=== PATIENT | female | born 1935 | race Caucasian/White ===

== ENCOUNTER 2019-11-03 15:48 | Observation (INO) | payer MEDICARE ==
[2019-11-03] MEDS ORDERED: Norco 10/325 MG Tablet PO PRN (16:42)
[2019-11-03] MEDS ORDERED: NORCO 5/325 MG PO PRN (16:42)
[2019-11-03] MEDS ORDERED: MEDICATION INTERVENTION PO SCH ×3 (17:00→17:30)
--- NOTE | 2019-11-03 17:08 | XRAY ---
Indication: Left leg pain and bruising following fall. 2-dimensional sonogram and color Doppler imaging of the major venous vessels of the left leg was performed. Comparison: None No thrombus seen in the examined deep venous vessels of the left leg including greater saphenous vein. Veins demonstrate normal compressibility. Venous waveforms are normal with and without augmentation. Impression: Left leg negative for DVT.
[2019-11-03] MEDS: Neurontin 100 MG PO SCH (21:03)
[2019-11-03] MEDS: PATIENT OWN MEDICATION TOP SCH (21:04)
[2019-11-03] MEDS: Pepcid 20 MG PO SCH (21:05)
[2019-11-03] MEDS ORDERED: [UNRECOGNIZED DRUG - OTHER] OP SCH (22:00)
[2019-11-03] MEDS ORDERED: MAGNESIUM OXIDE PO SCH (22:00)
[2019-11-03] MEDS ORDERED: MAG-OX 400 PO SCH (22:00)
[2019-11-03] MEDS ORDERED: DEXAMETHASONE OP SCH (22:00)
[2019-11-03] MEDS ORDERED: NON-FORMULARY ITEM (Cyclosporine [Restasis] 1 DROP) OP SCH (22:00)
[2019-11-04 04:07] LABS: BASOPHIL % 0.2 % (0.0-0.4); Basophil (Absolute #) 0.01 (0-0.4); Eosinophil % 3.2 % (0.00-5.0); Hematocrit 33.2 % (35-47); Hemoglobin 10.7 gm/dl (12.0-16.0); Lymphocyte (Absolute #) 1.37 (1.0-4.6); Mean Cell Volume 96.2 fl (78-100); Mean Corpuscular Hgb Concent. 32.2 g/dl (32-36); Monocyte (Absolute #) 0.85 (0.0-1.3); Monocytes % 13.6 % (0.0-12.0); Platelet Count 192 K/mm3 (150-450); Red Blood Count 3.45 M/mm3 (4.1-5.4); Red Cell Distribution Width 14.5 % (11.5-14.0); White Blood Count 6.2 K/mm3 (4.0-10.5)
[2019-11-04 04:37] LABS: ALBUMIN 3.4 g/dL (3.5-5.0); ANION GAP 9.4 MEQ/L (5-15); BILIRUBIN,TOTAL 0.7 mg/dL (0.2-1.3); Calcium 9.4 mg/dL (8.4-10.2); Creatinine 1 0.99 mg/dL (0.52-1.04); Potassium 4.3 mmol/L (3.5-5.1); TSH, 3RD Generation 3.34 mIU/L (0.47-4.68); Total Protein 6.4 g/dL (6.3-8.2)
[2019-11-04 07:17] VITALS: O2SAT 95
[2019-11-04] MEDS: Pepcid 20 MG PO SCH (09:07)
[2019-11-04] MEDS: PATIENT OWN MEDICATION TOP SCH (09:09)
[2019-11-04] MEDS ORDERED: SYNTHROID 25 MCG PO SCH (10:00)
[2019-11-04] MEDS ORDERED: NORVASC 5 MG PO SCH (10:00)
[2019-11-04] MEDS ORDERED: Zocor 10MG PO SCH (10:00)
[2019-11-04] MEDS ORDERED: Protonix 40MG Tablet PO SCH (10:00)
[2019-11-04] MEDS ORDERED: DULOXETINE HCL 10 MG PO SCH (10:00)
[2019-11-04] MEDS ORDERED: NON-FORMULARY ITEM (Cholecalciferol (Vitamin D3) [Vitamin D3] 1 CAP) PO SCH (10:00)
[2019-11-04] MEDS: Neurontin 100 MG PO SCH (11:41)
[2019-11-04 11:53] VITALS: BP 140/74; PULSE 76
--- NOTE | 2019-11-04 14:43 | PCM.SSS ---
History of Present Illness - Chief Complaint Chief Complaint: HEMATOMA LEFT LE History of Present Illness: is a 84 year old female who lives alone and had fallen on a 2 step ladder that collapsed when she was trying to get something off of the top of the fridg.13 days ago. Her [facility] [place] where she had an xray that was negative for fracture of left injured leg (see full ER report). Patient came in for follow up at the clinic today because the pain in her left lower leg is getting worse "10/10" level of pain.She was afraid she had a clot. - Review of Systems Constitutional: No Fever, No Chills Eyes: No Symptoms Respiratory: No Symptoms Cardiac: No Symptoms Abdominal/Gastrointestinal: No Symptoms Genitourinary Symptoms: No Symptoms Musculoskeletal: Fall (see HPI) Skin: Other (left low leg purple after fall) Neurological: No Dizziness, No Focal Weakness, No Sensory Changes Psychological: No Symptoms Endocrine: No Symptoms Hematologic/Lymphatic: Easy Bleeding (is on Plavix and a baby aspirin) Medications & Allergies Home Medications: Home Medication List Aspirin 81 gm Chew [Baby Aspirin 81 mg Chew] 81 mg PO DAILY 05/07/13 [ History Confirmed 11/03/19] Clopidogrel Bisulfate 75 mg [PLAVIX 75 MG Tablet] 75 mg PO DAILY 05/07/13 [History Confirmed 11/03/19] Cholecalciferol (Vitamin D3) [Vitamin D3] 1 cap PO DAILY 11/03/19 [History Confirmed 11/03/19] Cyclosporine [Restasis] 1 drop BID 11/03/19 [History Confirmed 11/03/19] Furosemide 20 mg [Lasix 20 mg] 20 mg PO DAILY 11/03/19 [History Confirmed 11/03/19] Gabapentin 100 mg PO HS 11/03/19 [History Confirmed 11/03/19] Hydrocortisone 1 gm EXT QID PRN 11/03/19 [History Confirmed 11/03/19] Levothyroxine Sodium 25 mcg PO DAILY 11/03/19 [History Confirmed 11/03/19] Magnesium Oxide [Magnesium] 1 tab PO HS 11/03/19 [History Confirmed 11/03/19] Omeprazole 20 mg PO DAILY 11/03/19 [History Confirmed 11/03/19] Potassium Chloride 10 Meq Tab* [Klor Con 10 MEQ] 10 meq PO BID 11/03/19 [ History Confirmed 11/03/19] Simvastatin 5 mg PO DAILY 11/03/19 [History Confirmed 11/03/19] Amlodipine Besylate 5 mg [Norvasc 5 mg] 5 mg PO DAILY 11/04/19 [History Confirmed 11/04/19] Hydrocodone/APAP 5-325 Tab^^^ [[place] 5-325 Tablet^^^] 1 tab PO Q4HPRN PRN #30 tablet MDD 6 11/04/19 [Rx] Allergies/Adverse Reactions: Allergies Allergy/AdvReac Type Severity Reaction Status Date / Time No Known Drug Allergies Allergy Unverified 05/07/13 01:48 - Past Medical History Past Medical History: Yes Neurological History: TIA ENT History: Cataracts Cardiac History: Hypertension Respiratory History: No Pertinent History Endocrine Medical History: No Pertinent History Musculoskelatal History: Arthritis GI Medical History: Ulcer History: Renal Disease Pyscho-Social History: No Pertinent History Reproductive Disorders: No Pertinent History Comment: SKIN CANCER - Female History Are you now?: No - Past Surgical History Past Surgical History: Yes Neuro Surgical History: No Pertinent History Cardiac History: No Pertinent History Respiratory Surgery: No Pertinent History GI Surgical History: Other Genitourinary Surgical Hx: No Pertinent History Musculskeletal Surgical Hx: Orthopedic Surgery Female Surgical History: No Pertinent History Other Surgical History: PERFORATED ULCER SHOULDER SURGERY - Social History Smoking Status: Never smoker Exposure to second hand smoke: No Alcohol: None Drug Use: none - Physical Exam Vital Signs: Vital Signs - 24 hr Temp Pulse Resp BP BP Pulse Ox 11/04/19 11:53 98.3 F 76 18 140/74 95 11/04/19 07:15 98.2 F 57 L 18 163/74 95 11/04/19 03:03 98.3 F 75 16 146/75 146/75 94 L 11/03/19 23:47 98.2 F 75 18 142/62 139/70 95 11/03/19 19:37 97.8 F 72 17 139/70 97 11/03/19 16:18 97.9 F 78 20 147/75 94 L 11/03/19 16:14 97.9 F 78 20 174/75 94 L General Appearance: mild distress (improved after Hydrocodone given on admission -no longer having pain at rest) Neurologic Exam: alert, oriented x 3, cooperative, short story writer II-XII nml as tested, normal mood/affect, nml cerebellar function, other (gait is slow due to pain in left lower anterior leg which is worse with walking) Neck Exam: normal inspection Respiratory Exam: normal breath sounds (no wheeze or ronchi or rales) Cardiovascular Exam: regular rate/rhythm Gastrointestinal/Abdomen Exam: soft, normal bowel sounds (nontender) Back Exam: other (no point tenderness) Extremity Exam: swelling (negative Pricilla's left,left calf is soft), tenderness ( anterior left distal leg with raised 4x6 cm fluctuant mass,entire leg from knee down is purple but skin is intact) Results - Labs Lab/Micro Results: Lab Results-Last 24 Hours 11/04/19 11/04/19 Range/Units 03:48 03:48 WBC 6.2 (4.0-10.5) K/mm3 RBC 3.45 L (4.1-5.4) M/mm3 Hgb 10.7 L (12.0-16.0) gm/dl Hct 33.2 L (35-47) % MCV 96.2 (78-100) fl MCH 31.0 (26-32) pg MCHC 32.2 (32-36) g/dl RDW 14.5 H (11.5-14.0) % Plt Count 192 (150-450) K/mm3 MPV 9.0 (6-9.5) fl Gran % 61.0 (36.0-66.0) % Eos # (Auto) 0.20 (0-0.5) Absolute Lymphs (auto) 1.37 (1.0-4.6) Absolute Monos (auto) 0.85 (0.0-1.3) Lymphocytes % 22.0 L (24.0-44.0) % Monocytes % 13.6 H (0.0-12.0) % Eosinophils % 3.2 (0.00-5.0) % Basophils % 0.2 (0.0-0.4) % Absolute Granulocytes 3.80 (1.4-6.9) Basophils # 0.01 (0-0.4) Sodium 142 (137-145) mmol/L Potassium 4.3 (3.5-5.1) mmol/L Chloride 108 H (98-107) mmol/L Carbon Dioxide 29 (22-30) mmol/L Anion Gap 9.4 (5-15) MEQ/L BUN 24 H (7-17) mg/dL Creatinine 0.99 (0.52-1.04) mg/dL Estimated GFR 56.7 ML/MIN Glucose 93 (74-106) mg/dL Calcium 9.4 (8.4-10.2) mg/dL Total Bilirubin 0.70 (0.2-1.3) mg/dL AST 26 (14-36) U/L ALT 16 (0-35) U/L Alkaline Phosphatase 60 (38-126) U/L Serum Total Protein 6.4 (6.3-8.2) g/dL Albumin 3.4 L (3.5-5.0) g/dL TSH 3rd Generation 3.340 (0.47-4.68) mIU/L - Radiology Impressions Radiology Exams & Impressions: Radiology Procedures Category Date Time Status VENOUS UNILAT/LIMITED EXTREMIT [US] Routine Exams 11/03/19 16:20 Completed Assessment/Plan (1) Hematoma of left lower extremity Current Visit: Yes Status: Acute Assessment & Plan: painful ambulation ,doppler negative for DVT. Code(s): S80.12XA - CONTUSION OF LEFT LOWER LEG, INITIAL ENCOUNTER (2) Fall (on) (from) other stairs and steps, sequela Current Visit: Yes Status: Acute Assessment & Plan: patient was evaluated in ER at [facility] and xrays negative for fractue. See full report from ER Code(s): W10.8XXS - FALL (ON) (FROM) OTHER STAIRS AND STEPS, SEQUELA (3) TIA on medication Current Visit: No Status: Resolved Assessment & Plan: Plavix and baby aspirin on hold. Code(s): G45.9 - TRANSIENT CEREBRAL ISCHEMIC ATTACK, UNSPECIFIED Hospital Summary - Hospital Course Hospital Course: Patient was admitted from my office today with large hematoma left lower leg following a fall. She was admitted to observation for pain control and to have left LE doppler that ruled out DVT. Patient slept well through the night after [place] 10mg. She was evaluated by PT and instructed on ROM while laying and walking with a walker. She will be using her walker at home. Patient's daughter will stay with her this evening and overnight.We discussed that she can be slow moving while on pain medication and must have supervision. - Vitals & Intake/Output Vital Signs: Vital Signs Temperature 98.3 F 11/04/19 11:53 Pulse Rate 76 11/04/19 11:53 Respiratory Rate 18 11/04/19 11:53 Blood Pressure 140/74 11/04/19 11:53 O2 Sat by Pulse Oximetry 95 11/04/19 11:53 Intake & Output: Intake & Output 11/02/19 11/03/19 11/04/19 11/05/19 11:59 11:59 11:59 11:59 Intake Total 1220 480 Balance 1220 480 Weight 73.4 kg - Lab Result Diagrams: 11/04/19 03:48 11/04/19 03:48 Lab Results-Last 24 Hrs: Lab Results-Last 24 Hours 11/04/19 11/04/19 Range/Units 03:48 03:48 WBC 6.2 (4.0-10.5) K/mm3 RBC 3.45 L (4.1-5.4) M/mm3 Hgb 10.7 L (12.0-16.0) gm/dl Hct 33.2 L (35-47) % MCV 96.2 (78-100) fl MCH 31.0 (26-32) pg MCHC 32.2 (32-36) g/dl RDW 14.5 H (11.5-14.0) % Plt Count 192 (150-450) K/mm3 MPV 9.0 (6-9.5) fl Gran % 61.0 (36.0-66.0) % Eos # (Auto) 0.20 (0-0.5) Absolute Lymphs (auto) 1.37 (1.0-4.6) Absolute Monos (auto) 0.85 (0.0-1.3) Lymphocytes % 22.0 L (24.0-44.0) % Monocytes % 13.6 H (0.0-12.0) % Eosinophils % 3.2 (0.00-5.0) % Basophils % 0.2 (0.0-0.4) % Absolute Granulocytes 3.80 (1.4-6.9) Basophils # 0.01 (0-0.4) Sodium 142 (137-145) mmol/L Potassium 4.3 (3.5-5.1) mmol/L Chloride 108 H (98-107) mmol/L Carbon Dioxide 29 (22-30) mmol/L Anion Gap 9.4 (5-15) MEQ/L BUN 24 H (7-17) mg/dL Creatinine 0.99 (0.52-1.04) mg/dL Estimated GFR 56.7 ML/MIN Glucose 93 (74-106) mg/dL Calcium 9.4 (8.4-10.2) mg/dL Total Bilirubin 0.70 (0.2-1.3) mg/dL AST 26 (14-36) U/L ALT 16 (0-35) U/L Alkaline Phosphatase 60 (38-126) U/L Serum Total Protein 6.4 (6.3-8.2) g/dL Albumin 3.4 L (3.5-5.0) g/dL TSH 3rd Generation 3.340 (0.47-4.68) mIU/L - Radiology Exams Ordered Rad Exams-Entire Visit: Radiology Procedures Category Date Time Status VENOUS UNILAT/LIMITED EXTREMIT [US] Routine Exams 11/03/19 16:20 Completed - Procedures and Test Procedures and Tests throughout Hospitalization: Therapy Orders & Screens 11/03/19 16:47 OT Screen per Nursing Assess Comment: Protocol Order Physician Instructions: Greater than 3 points order OT Admission Screening Reason For Exam: Triggered on Admission Diagnosis: HEMATOMA LEFT LE Open Wound/Cellutlitis/Pressure Ulcers: No Acute Fx/ORIF/Change in wt bearing status: No Severe MUSCULOSKELETAL pain: Yes ADL Dysfunction: No Acute CVA w/Hemiparesis/Hemiplegia: No Decreased Functional Mobility/Strength: Yes Sprain/Strain: No Acute Post-op Mobility Dysfunction: No Total Points: 6 PT Screen per Nursing Assess Comment: Protocol Order Physician Instructions: Greater than 3 points order PT Admission Screenin Reason For Exam: Triggered on Admission Diagnosis: HEMATOMA LEFT LE Open Wound/Cellutlitis/Pressure Ulcers: No Acute Fx/ORIF/Change in wt bearing status: No Severe MUSCULOSKELETAL pain: Yes ADL Dysfunction: No Acute CVA w/Hemiparesis/Hemiplegia: No Decreased Functional Mobility/Strength: Yes Sprain/Strain: No Acute Post-op Mobility Dysfunction: No Total Points: 6 11/04/19 10:32 PT Eval & Treat (MD Order) ROUTINE Reason for Eval:: EVALUATE IF PATIENT IS ABLE TO AMBULATE AND TRANSFER SAFELY PRIOR TO POSSIBLE DC HOME PATIENT LIVES ALONE Diagnosis: HEMATOMA LEFT LE - Discharge Disposition: Home, Self-Care Condition: Stable Prescriptions: New Hydrocodone/APAP 5-325 Tab^^^ [[place] 5-325 Tablet^^^] 1 tab PO Q4HPRN PRN # 30 tablet MDD 6 PRN Reason: Pain Continue Simvastatin 5 mg PO DAILY Magnesium Oxide [Magnesium] 1 tab PO HS Cholecalciferol (Vitamin D3) [Vitamin D3] 1 cap PO DAILY Cyclosporine [Restasis] 1 drop BID Potassium Chloride 10 Meq Tab* [Klor Con 10 MEQ] 10 meq PO BID Omeprazole 20 mg PO DAILY Levothyroxine Sodium 25 mcg PO DAILY Hydrocortisone 1 gm EXT QID PRN PRN Reason: Itching Gabapentin 100 mg PO HS Furosemide 20 mg [Lasix 20 mg] 20 mg PO DAILY Amlodipine Besylate 5 mg [Norvasc 5 mg] 5 mg PO DAILY No Action Aspirin 81 gm Chew [Baby Aspirin 81 mg Chew] 81 mg PO DAILY Clopidogrel Bisulfate 75 mg [PLAVIX 75 MG Tablet] 75 mg PO DAILY Instructions: Taking Care of Bruises, Preventing Falls in the Older Adult, Muscle and Bone Pain (DC), Contusion (DC), General Trauma (DC), Hydrocodone and Acetaminophen Follow up with: CONSTANTINE HENRY DO [Primary Care Provider] - 11/16/19 10:30 am Forms: Discharge Instructions Short Stay Summary QM - VTE Measures VTE Mechanical Contraindication: Medical Contraindication
[2019-11-05] MEDS ORDERED: VITAMIN D PO SCH (10:00)
== END 2019-11-04 15:34 | disposition home or self-care (01) ==
LOC: MED SURG 16:03
PROVIDERS: ADMIT Family Medicine; ATTEND Family Medicine
DX: S80.12XD Contusion of left lower leg, subsequent encounter (principal); W11.XXXD Fall on and from ladder, subsequent encounter; I10 Essential (primary) hypertension; Z79.01 Long term (current) use of anticoagulants; Z79.899 Other long term (current) drug therapy; Z86.73 Personal history of transient ischemic attack (TIA), and cerebral infarction without residual deficits
CPT/HCPCS: 36415; 80053; 84443; 85025; 93971; G0378; A9270-GY

== ENCOUNTER 2019-12-10 15:53 | Emergency (ER) | payer MEDICARE ==
--- NOTE | 2019-12-10 16:06 | ERPHSYRPT ---
- History of Present Illness Time Seen by Provider: 12/10/19 16:06 Source: patient, family Exam Limitations: no limitations Physician History: 84 y/o right handed white female on plavix and asa presents with right hand injury and dorsal soft tissue swelling. pt was cleaning a stove and cover fell directly onto back of right hand. Occurred: just prior to arrival Method of Injury: direct blow Quality: constant (mild ache) Severity of Pain-Max: mild Severity of Pain-Current: mild Extremities Pain Location: hand: right (dorsal aspect) Modifying Factors: Improves With: movement Associated Symptoms: none Allergies/Adverse Reactions: No Known Drug Allergies Allergy (Verified 12/10/19 16:25) Home Medications: Aspirin 81 gm Chew [Baby Aspirin 81 mg Chew] 81 mg PO DAILY 05/07/13 [ History] Clopidogrel Bisulfate 75 mg [PLAVIX 75 MG Tablet] 75 mg PO DAILY 05/07/13 [History] Cholecalciferol (Vitamin D3) [Vitamin D3] 1 cap PO DAILY 11/03/19 [History] Cyclosporine [Restasis] 1 drop BID 11/03/19 [History] Furosemide 20 mg [Lasix 20 mg] 20 mg PO DAILY 11/03/19 [History] Levothyroxine Sodium 25 mcg PO DAILY 11/03/19 [History] Magnesium Oxide [Magnesium] 1 tab PO HS 11/03/19 [History] Omeprazole 20 mg PO DAILY 11/03/19 [History] Potassium Chloride 10 Meq Tab* [Klor Con 10 MEQ] 10 meq PO BID 11/03/19 [ History] Simvastatin 5 mg PO DAILY 11/03/19 [History] Amlodipine Besylate 5 mg [Norvasc 5 mg] 5 mg PO DAILY 11/04/19 [History] - Review of Systems Constitutional: No Symptoms Eyes: No Symptoms Ears, Nose, & Throat: No Symptoms Respiratory: No Symptoms Cardiac: No Symptoms Abdominal/Gastrointestinal: No Symptoms Genitourinary Symptoms: No Symptoms Musculoskeletal: Injury Skin: Other (right hand subq hematoma) Neurological: No Symptoms Psychological: No Symptoms Endocrine: No Symptoms Hematologic/Lymphatic: No Symptoms Immunological/Allergic: No Symptoms All Other Systems: Reviewed and Negative - Past Medical History Pertinent Past Medical History: Yes Neurological History: No Pertinent History, TIA ENT History: Cataracts Cardiac History: Hypertension Respiratory History: No Pertinent History Endocrine Medical History: No Pertinent History Musculoskeletal History: Arthritis GI Medical History: Ulcer History: Renal Disease Psycho-Social History: No Pertinent History Female Reproductive Disorders: No Pertinent History Other Medical History: SKIN CANCER - Past Surgical History Past Surgical History: Yes Neuro Surgical History: No Pertinent History Cardiac: No Pertinent History Respiratory: No Pertinent History Gastrointestinal: Other Genitourinary: No Pertinent History Musculoskeletal: Orthopedic Surgery Female Surgical History: No Pertinent History Other Surgical History: PERFORATED ULCER SHOULDER SURGERY - Social History Smoking Status: Never smoker Exposure to second hand smoke: No Drug Use: none Patient Lives Alone: Yes - Nursing Vital Signs Nursing Vital Signs: Initial Vital Signs Temperature 97.5 F 12/10/19 16:04 Pulse Rate 85 12/10/19 16:04 Respiratory Rate 16 12/10/19 16:04 Blood Pressure 147/99 12/10/19 16:04 O2 Sat by Pulse Oximetry 97 12/10/19 16:04 Pain Scale Pain Intensity 2 - Physical Exam General Appearance: no apparent distress, alert, anxiety Eyes, Ears, Nose, Throat Exam: normal ENT inspection, moist mucous membranes Neck Exam: normal inspection, non-tender, supple, full range of motion Cardiovascular/Respiratory Exam: chest non-tender, no respiratory distress Abdominal Exam: non-tender Back Exam: normal inspection, normal range of motion, No CVA tenderness, No vertebral tenderness Shoulder Exam: normal inspection, non-tender, no evidence of injury, normal ROM Elbow/Forearm Exam: normal inspection, non-tender, no evidence of injury, normal ROM Wrist Exam: normal inspection, non-tender, no evidence of injury, normal ROM Hand Exam: normal inspection, non-tender, normal ROM, bone tenderness, soft tissue tenderness (with subq hematoma) Neuro/Tendon Exam: normal sensation, normal motor functions, normal tendon functions, responds to pain Mental Status Exam: alert, oriented x 3, cooperative Skin Exam: other (dorsal right hand subq hematoma) SpO2 Interpretation: normal O2 Delivery: Room Air - Course Nursing assessment & vital signs reviewed: Yes Ordered Tests: Active Orders 24 hr Category Date Time Status HAND (MINIMUM 3 VIEWS) Stat Exams 12/10/19 16:11 Completed - Progress Progress: unchanged Progress Note: 12/10/19 16:55 right hand xray-soft tissue swelling. no acute bony fx or dislocation Counseled pt/family regarding: diagnosis, need for follow-up, rad results - Departure Departure Disposition: Home Clinical Impression: Hand contusion, Hematoma Condition: Stable Critical Care Time: No Referrals: CONSTANTINE HENRY DO [Primary Care Provider] - Additional Instructions: ice pack to right hand 3 times daily for 3 days. follow up with primary doctor for further management
--- NOTE | 2019-12-10 16:45 | XRAY ---
Indication: Pain following injury. Comparison: None 3 views of the right hand demonstrates posterior soft tissue swelling without fracture. Elsewhere osteopenia, mild/moderate degenerative changes all IP joints, mild degenerative changes all MCP joints, and moderate/advanced degenerative changes of 1st metacarpal multangular scaphoid articulation.
[2019-12-10 17:18] VITALS: BP 147/89; PULSE 86; O2SAT 98
== END 2019-12-10 17:23 | disposition home or self-care (01) ==
LOC: ED 15:53
DX: S60.221A Contusion of right hand, initial encounter (principal); W22.09XA Striking against other stationary object, initial encounter; Z79.899 Other long term (current) drug therapy; M19.90 Unspecified osteoarthritis, unspecified site; I12.9 Hypertensive chronic kidney disease with stage 1 through stage 4 chronic kidney disease, or unspecified chronic kidney disease; N18.9 Chronic kidney disease, unspecified; Z85.828 Personal history of other malignant neoplasm of skin; Z86.73 Personal history of transient ischemic attack (TIA), and cerebral infarction without residual deficits
CPT/HCPCS: 73130; 99283

== ENCOUNTER 2021-10-23 08:38 | Emergency (ER) | payer MEDICARE ==
[2021-10-23] MEDS ORDERED: DECADRON 10MG INJ. IM ONE (09:06)
[2021-10-23] MEDS ORDERED: TORAdol 30 mg Injection IM ONE (09:07)
--- NOTE | 2021-10-23 09:14 | ERPHSYRPT ---
- History of Present Illness Time Seen by Provider: 10/23/21 09:00 Source: patient Exam Limitations: no limitations Patient Subjective Stated Complaint: Back pain Triage Nursing Assessment: Patient brought back to ED via w/c and transferred to bed with assist of 1. Patient A+O x3. Patient's skin pink, warm and dry. Patient complains of right lower back sided pain 10/10. Patient's daughter stated she was getting into bed on Saturday and has had pain ever since. No visible injuries or bruising noted. Physician History: Patient is a 86-year-old female presents to our ED with acute on chronic back pain. Patient sees Dr. Michel regularly. Dr. Michel has injected her back in the past. Patient daughter is a nurse and states that patient was getting into bed on Saturday when she injured her back. Patient has been complaining of 10 out of 10 back pain since Saturday. No additional trauma. No fever. No recent back procedure. Daughter states that patient is incontinent at baseline. No obvious change in bowel bladder function. Symptoms are moderate in intensity. Movement reproduces symptoms. Pain improved somewhat with rest. Daughter tried contacting [facility] this morning however was unsuccessful and brought patient to our ED. Patient has no other complaints at this time. Timing/Duration: yesterday Severity: moderate Modifying Factors: Improves With: movement Associated Symptoms: denies symptoms Allergies/Adverse Reactions: No Known Drug Allergies Allergy (Verified 10/23/21 08:59) Home Medications: Aspirin 81 gm Chew [Baby Aspirin 81 mg Chew] 81 mg PO DAILY 05/07/13 [History] Clopidogrel Bisulfate 75 mg [PLAVIX 75 MG Tablet] 75 mg PO DAILY 05/07/13 [History] Cholecalciferol (Vitamin D3) [Vitamin D3] 1 cap PO DAILY 11/03/19 [History] Cyclosporine [Restasis] 1 drop BID 11/03/19 [History] Furosemide 20 mg [Lasix 20 mg] 20 mg PO DAILY 11/03/19 [History] Levothyroxine Sodium 25 mcg PO DAILY 11/03/19 [History] Magnesium Oxide [Magnesium] 1 tab PO HS 11/03/19 [History] Omeprazole 20 mg PO DAILY 11/03/19 [History] Potassium Chloride 10 Meq Tab* [Klor Con 10 MEQ] 10 meq PO BID 11/03/19 [History] Simvastatin 5 mg PO DAILY 11/03/19 [History] Amlodipine Besylate 5 mg [Norvasc 5 mg] 5 mg PO DAILY 11/04/19 [History] Hx Tetanus, Diphtheria Vaccination/Date Given: No Hx Influenza Vaccination/Date Given: Yes Hx Pneumococcal Vaccination/Date Given: No Immunizations Up to Date: Yes Travel Risk - International Travel Have you traveled outside of the country in past 3 weeks: No - Coronavirus Screening Are you exhibiting any of the following symptoms?: No Close contact with a COVID-19 positive Pt in past 14-21 Days: No - Vaccine Status Have you recieved a Covid-19 vaccination: Yes 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[employer] - Vaccination Dates Date of 2cond Vaccination (if applicable): January 2021 - Review of Systems Constitutional: No Symptoms, No Fever, No Chills Eyes: No Symptoms Ears, Nose, & Throat: No Symptoms Respiratory: No Symptoms, No Cough, No Dyspnea Cardiac: No Symptoms, No Chest Pain, No Edema, No Syncope Abdominal/Gastrointestinal: No Symptoms, No Abdominal Pain, No Nausea, No Vomi ting, No Diarrhea Genitourinary Symptoms: No Symptoms, No Dysuria Musculoskeletal: No Symptoms, No Back Pain, No Neck Pain Skin: No Symptoms, No Rash Neurological: No Symptoms, No Dizziness, No Focal Weakness, No Sensory Changes Psychological: No Symptoms Endocrine: No Symptoms Hematologic/Lymphatic: No Symptoms Immunological/Allergic: No Symptoms All Other Systems: Reviewed and Negative - Past Medical History Pertinent Past Medical History: Yes Neurological History: No Pertinent History, TIA ENT History: Cataracts Cardiac History: Hypertension Respiratory History: No Pertinent History Endocrine Medical History: No Pertinent History Musculoskeletal History: Arthritis GI Medical History: Ulcer History: Renal Disease Psycho-Social History: No Pertinent History Female Reproductive Disorders: No Pertinent History Other Medical History: SKIN CANCER; 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; shunt placed 2020 - Past Surgical History Past Surgical History: Yes Neuro Surgical History: No Pertinent History Cardiac: No Pertinent History Respiratory: No Pertinent History Gastrointestinal: Other Genitourinary: No Pertinent History Musculoskeletal: Orthopedic Surgery Female Surgical History: No Pertinent History Other Surgical History: PERFORATED ULCER SHOULDER SURGERY - Social History Smoking Status: Never smoker Exposure to second hand smoke: No Drug Use: none 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) - Female History Hx Now: No - Nursing Vital Signs Nursing Vital Signs: Initial Vital Signs Temperature 97.5 F 10/23/21 08:47 Pulse Rate 75 10/23/21 08:47 Respiratory Rate 18 10/23/21 08:47 Blood Pressure 140/80 10/23/21 08:47 O2 Sat by Pulse Oximetry 95 10/23/21 08:47 Pain Scale Pain Intensity 7 - Physical Exam General Appearance: no apparent distress, alert Eye Exam: PERRL/EOMI, eyes nml inspection Ears, Nose, Throat Exam: normal ENT inspection, TMs normal, pharynx normal, moist mucous membranes Neck Exam: normal inspection, non-tender, supple, full range of motion Respiratory Exam: normal breath sounds, lungs clear, airway intact, No respiratory distress Cardiovascular Exam: regular rate/rhythm, normal heart sounds, normal peripheral pulses Gastrointestinal/Abdomen Exam: soft, normal bowel sounds, No tenderness, No mass Back Exam: normal inspection, normal range of motion, No CVA tenderness, No vertebral tenderness Extremity Exam: normal inspection, normal range of motion, pelvis stable Neurologic Exam: alert, oriented x 3, cooperative, normal mood/affect, sensation nml, No motor deficits Skin Exam: normal color, warm, dry, No rash Lymphatic Exam: No adenopathy SpO2 Interpretation: normal SpO2: 95 O2 Delivery: Room Air - Course Nursing assessment & vital signs reviewed: Yes - CT Exams Lumbar Spine CT Interpretation: Tele-radiologist Report Ordered Tests: Active Orders 24 hr Category Date Time Status LUMBAR SPINE W/O [CT] Stat Exams 10/23/21 09:05 Completed CULTURE,URINE Stat Lab 10/23/21 10:26 Received UA W/RFX UR CULTURE Stat Lab 10/23/21 10:26 Completed Medication Summary Discontinued Medications Generic Name Dose Route Start Last Admin Trade Name Freq PRN Reason Stop Dose Admin Dexamethasone Sodium Phosphate 6 mg 10/23/21 09:06 10/23/21 10:05 Dexamethasone Sod Phosphate 10 Mg/Ml IM 10/23/21 09:07 6 mg STAT ONE Administration Dexamethasone Sodium Phosphate Confirm 10/23/21 09:50 Dexamethasone Sod Phosphate 10 Mg/Ml Administered 10/23/21 09:51 Dose 10 mg .ROUTE .STK-MED ONE Ketorolac Tromethamine 30 mg 10/23/21 09:07 10/23/21 09:50 Ketorolac Tromethamine 30 Mg/Ml Inj IM 10/23/21 09:08 30 mg STAT ONE Administration Ketorolac Tromethamine Confirm 10/23/21 09:50 Ketorolac Tromethamine 30 Mg/Ml Inj Administered 10/23/21 09:51 Dose 30 mg .ROUTE .STK-MED ONE Lab/Rad Data: Laboratory Results 10/23/21 Range/Units 10:26 Urine Color STRAW (YELLOW) Urine Appearance CLOUDY (CLEAR) Urine pH 6.0 (5-6) Ur Specific [place] 1.030 (1.005-1.025) Urine Protein 1+ (Negative) Urine Ketones NEGATIVE (NEGATIVE) Urine Blood MODERATE NON-HEM (0-5) Star/ul Urine Nitrite POSITIVE (NEGATIVE) Urine Bilirubin NEGATIVE (NEGATIVE) Urine Urobilinogen 0.2 (0-1) mg/dL Ur Leukocyte Esterase 2+ (NEGATIVE) Urine WBC (Auto) 51-100 (0-5) /HPF Urine RBC (Auto) 6-10 (0-2) /HPF U Epithel Cells (Auto) RARE (FEW) /HPF Urine Bacteria (Auto) MODERATE (NEGATIVE) /HPF Urine Mucus (Auto) SLIGHT (NEGATIVE) /HPF Urine Culture Reflexed YES (NO) Urine Glucose NEGATIVE (NEGATIVE) mg/dL - Progress Progress: improved Progress Note: Patient reassessed. Pain improved. CT scan negative for acute pathology. Patient appears to have acute on chronic low back pain given the mechanism of her injury. UA reveals urinary tract infection. Patient has Macrobid in the past for UTI. Patient received a dose of Macrobid in our ED. A prescription for the same was forwarded to patient's pharmacy. Patient currently has a follow-up appointment scheduled with Dr. Michel tomorrow at 10 AM. Patient has home health will monitor patient's progress overnight. Plan of care discussed with daughter and she agrees. No indication for further work-up at this time. Will discharge home. Patient daughter voiced no other complaints or concerns at this time. Portions of this note were created with voice recognition technology. There may be grammatical, spelling, punctuation or sound alike errors 10/23/21 11:[address] Michel upon patient's arrival. Dr. Michel advised a urinalysis and back imaging study. Studies were performed according to Dr. Michel request. 10/23/21 11:16 Discussed with : Cathy Will see patient in: office (Patient will see Dr. Michel tomorrow morning at 10 AM) Counseled pt/family regarding: lab results, diagnosis, need for follow-up, rad results - Departure Departure Disposition: Home Clinical Impression: Acute exacerbation of chronic low back pain, Bulging disc, Dextroscoliosis, Arthritis, lumbar spine, Renal cyst, Osteopenia, Urinary tract infection Condition: Stable Critical Care Time: No Referrals: CONSTANTINE HENRY DO [Primary Care Provider] - Follow up/PCP as directed
[2021-10-23] MEDS ORDERED: DECADRON 10MG INJ. ONE (09:50)
[2021-10-23] MEDS ORDERED: TORAdol 30 mg Injection ONE (09:50)
--- NOTE | 2021-10-23 10:03 | XRAY ---
Indication: Severe right back pain 2 days. Multiple contiguous axial images obtained through the lumbar spine. Sagittal and coronal reformatted images obtained. Comparison: Lumbar radiograph February 02, 2020. Osseous structures remain demineralized again with multilevel thoracolumbar degenerative vacuum disc phenomena. There is mild broad-based L3-S1 disc bulge and mild bilateral degenerative facet hypertrophy. No acute fracture, suspicious bony lesions, or spinal canal stenosis. Sagittal and coronal reformatted images again demonstrates normal lumbar alignment, mild dextroscoliosis, multilevel degenerative disc space loss, and L1 superior endplate Schmorl node. No acute compression fracture or subluxation. Visualized noncontrasted soft tissues demonstrates mild scattered aortoiliac calcifications and bilateral renal cysts, largest on the left measuring 6.5 cm. Partially visualized left shunt catheter. Impression: 1. Stable osteopenia, multilevel degenerative spondylosis, scoliosis, and L1 Schmorl node. Negative acute fracture or spinal canal stenosis. 2. Incidental scattered aortoiliac calcifications and bilateral renal cysts.
[2021-10-23 10:48] LABS: Appearance CLOUDY (CLEAR); Bilirubin NEGATIVE (NEGATIVE); Blood MODERATE NON-HEM Ery/ul (0-5); Glucose NEGATIVE (NEGATIVE); Ketones NEGATIVE (NEGATIVE); Leukocyte Esterase 2+ (NEGATIVE); Mucus SLIGHT /HPF (NEGATIVE); Nitrite POSITIVE (NEGATIVE); Protein,Urine Dip 1+ (Negative); Urobilinogen 0.2 mg/dL (0-1)
[2021-10-23 10:49] LABS: Bacteria MODERATE /HPF (NEGATIVE); Epithelial Cells RARE /HPF (FEW); WBC 51-100 /HPF (0-5)
[2021-10-23] MEDS ORDERED: Macrobid 100MG Capsule PO ONE (11:14)
[2021-10-23] MEDS ORDERED: Macrobid 100MG Capsule ONE (11:31)
[2021-10-23 17:11] VITALS: BP 129/60; PULSE 87; O2SAT 98
== END 2021-10-23 12:04 | disposition home or self-care (01) ==
LOC: ED 08:38
DX: M54.9 Dorsalgia, unspecified (principal); M51.27 Other intervertebral disc displacement, lumbosacral region; G89.29 Other chronic pain; M41.80 Other forms of scoliosis, site unspecified; M47.896 Other spondylosis, lumbar region; N28.1 Cyst of kidney, acquired; M85.80 Other specified disorders of bone density and structure, unspecified site; N39.0 Urinary tract infection, site not specified; I10 Essential (primary) hypertension; Z79.01 Long term (current) use of anticoagulants
CPT/HCPCS: 72131; 81001; 87077; 87086; 87186; 96372; 99284; J1100; J1885; A9270-GY

== ENCOUNTER 2021-10-24 12:13 | Emergency (ER) | payer MEDICARE ==
[2021-10-24 12:22] VITALS: PULSE 94; O2SAT 97
--- NOTE | 2021-10-24 12:25 | ERPHSYRPT ---
- History of Present Illness Time Seen by Provider: 10/24/21 12:25 Source: patient Exam Limitations: no limitations Patient Subjective Stated Complaint: Pt was in radiology when they noticed a large hematoma to her right hand that was not there prior to coming to the [facility] Triage Nursing Assessment: Pt brought to the ER from radiology, hypertensive, denies pain in the hand but has back pain, pt denies injuring or hitting hand, ice was placed on the hand in the ED, no other complaints at this time Occurred: just prior to arrival Method of Injury: unknown Quality: aching (Mild achiness in the dorsal aspect right hand) Severity of Pain-Max: mild Severity of Pain-Current: mild Extremities Pain Location: hand: right (Dorsal aspect hematoma) Modifying Factors: Improves With: nothing Associated Symptoms: none Allergies/Adverse Reactions: No Known Drug Allergies Allergy (Verified 10/24/21 12:22) Home Medications: Aspirin 81 gm Chew [Baby Aspirin 81 mg Chew] 81 mg PO DAILY 05/07/13 [History] Clopidogrel Bisulfate 75 mg [PLAVIX 75 MG Tablet] 75 mg PO DAILY 05/07/13 [History] Cholecalciferol (Vitamin D3) [Vitamin D3] 1 cap PO DAILY 11/03/19 [History] Cyclosporine [Restasis] 1 drop BID 11/03/19 [History] Furosemide 20 mg [Lasix 20 mg] 20 mg PO DAILY 11/03/19 [History] Levothyroxine Sodium 25 mcg PO DAILY 11/03/19 [History] Magnesium Oxide [Magnesium] 1 tab PO HS 11/03/19 [History] Omeprazole 20 mg PO DAILY 11/03/19 [History] Potassium Chloride 10 Meq Tab* [Klor Con 10 MEQ] 10 meq PO BID 11/03/19 [History] Simvastatin 5 mg PO DAILY 11/03/19 [History] Amlodipine Besylate 5 mg [Norvasc 5 mg] 5 mg PO DAILY 11/04/19 [History] Hx Tetanus, Diphtheria Vaccination/Date Given: No Hx Influenza Vaccination/Date Given: Yes Hx Pneumococcal Vaccination/Date Given: No Travel Risk - International Travel Have you traveled outside of the country in past 3 weeks: No - Coronavirus Screening Are you exhibiting any of the following symptoms?: No - Vaccine Status Have you recieved 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[employer] - Vaccination Dates Date of 2cond Vaccination (if applicable): January 2021 - Review of Systems Constitutional: No Symptoms Eyes: No Symptoms Ears, Nose, & Throat: No Symptoms Respiratory: No Symptoms Cardiac: No Symptoms Abdominal/Gastrointestinal: No Symptoms Genitourinary Symptoms: No Symptoms Musculoskeletal: Other (Hematoma dorsal aspect right hand) Skin: No Symptoms Neurological: No Symptoms Psychological: No Symptoms Endocrine: No Symptoms Hematologic/Lymphatic: No Symptoms Immunological/Allergic: No Symptoms All Other Systems: Reviewed and Negative - Past Medical History Pertinent Past Medical History: Yes Neurological History: No Pertinent History, TIA ENT History: Cataracts Cardiac History: Hypertension Respiratory History: No Pertinent History Endocrine Medical History: No Pertinent History Musculoskeletal History: Arthritis GI Medical History: Ulcer History: Renal Disease Psycho-Social History: No Pertinent History Female Reproductive Disorders: No Pertinent History Other Medical History: SKIN CANCER; 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; shunt placed 2020 - Past Surgical History Past Surgical History: Yes Neuro Surgical History: No Pertinent History Cardiac: No Pertinent History Respiratory: No Pertinent History Gastrointestinal: Other Genitourinary: No Pertinent History Musculoskeletal: Orthopedic Surgery Female Surgical History: No Pertinent History Other Surgical History: PERFORATED ULCER SHOULDER SURGERY - Social History Smoking Status: Never smoker Exposure to second hand smoke: No Drug Use: none 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) - Female History Hx Now: No - Nursing Vital Signs Nursing Vital Signs: Initial Vital Signs Temperature 97.9 F 10/24/21 12:15 Pulse Rate 94 H 10/24/21 12:15 Blood Pressure 153/93 10/24/21 12:15 O2 Sat by Pulse Oximetry 97 10/24/21 12:15 Pain Scale Pain Intensity 0 - Physical Exam General Appearance: no apparent distress, alert Eyes, Ears, Nose, Throat Exam: normal ENT inspection, moist mucous membranes Cardiovascular/Respiratory Exam: chest non-tender, no respiratory distress Abdominal Exam: non-tender Back Exam: normal inspection, normal range of motion, No CVA tenderness, No vertebral tenderness Shoulder Exam: normal inspection, non-tender, no evidence of injury, normal ROM Elbow/Forearm Exam: normal inspection, non-tender, no evidence of injury, normal ROM Wrist Exam: bone tenderness (Chronic), soft tissue tenderness (Chronic) Hand Exam: normal ROM, soft tissue tenderness (Minimal dorsal aspect right hand with associated hematoma measuring approximately 3 cm in width and 6 cm in length no evidence of infection) Neuro/Tendon Exam: normal sensation, normal motor functions, normal tendon functions Mental Status Exam: alert, oriented x 3, cooperative Skin Exam: other (Hematoma as above dorsal aspect right hand) SpO2 Interpretation: normal SpO2: 97 O2 Delivery: Room Air - Course Nursing assessment & vital signs reviewed: Yes Ordered Tests: Active Orders 24 hr Category Date Time Status HAND (MINIMUM 3 VIEWS) Stat Exams 10/24/21 12:53 Completed - Progress Progress: unchanged Progress Note: 10/24/21 13:53 Medical decision making: I clarified with Dr. Huddleston, our radiologist regarding the impression on today's x-ray of her right hand. The patient actually has a persistent slow healing fracture of the shaft of the distal radius on the right side. It is not different than the x-ray finding of the right wrist that was performed on 09/19/2021. Therefore there are no new acute findings other than the dorsal right hand hematoma Counseled pt/family regarding: diagnosis, need for follow-up, rad results - Departure Departure Disposition: Home Clinical Impression: Spontaneous hematoma of hand, Fracture, radius, distal Clinical Impression: (Ruled Out): Fracture of distal radius and ulna Condition: Stable Critical Care Time: No Referrals: CONSTANTINE HENRY DO [Primary Care Provider] - Follow up/PCP as directed Additional Instructions: Stop NSAIDs and aspirin for 72 hours. For the next 48 hours apply ice pack to right hand, dorsal aspect 3 times a day for 10 minutes at a time. After 48 hours may alternate ice and heat. Continue your chronic wrist fracture splinting as prescribed by your orthopedic clinic. Follow-up with your orthopedic clinic.
--- NOTE | 2021-10-24 13:15 | XRAY ---
Indication: Right hand hematoma. Comparison: December 10, 2019. 3 view right hand demonstrates new minimally angulated transverse fracture distal shaft radius with posterior soft tissue swelling/hematoma. Stable osteopenia, mild/moderate degenerative changes all IP joints, mild degenerative changes all MCP joints, and moderate/advanced degenerative changes 1st metacarpal articular scaphoid articulation.
[2021-10-24 13:37] VITALS: BP 144/101
== END 2021-10-24 14:30 | disposition home or self-care (01) ==
LOC: ED 12:13
DX: M79.81 Nontraumatic hematoma of soft tissue (principal); S52.301 Unspecified fracture of shaft of right radius; Z79.01 Long term (current) use of anticoagulants; I10 Essential (primary) hypertension
CPT/HCPCS: 73130; 99283

== ENCOUNTER 2021-11-29 11:58 | Day surgery (SDC) | payer MEDICARE, OTHER ==
[2021-11-29] MEDS ORDERED: Depo-Medrol 40 MG/ML IM ONE (11:59)
[2021-11-29] MEDS ORDERED: Sodium Chloride 0.9% 10 ML FLUSH Syringe IJ ONE (11:59)
[2021-11-29] MEDS ORDERED: DIPRIVAN 200 MG/20 ML IV ONE (14:04)
[2021-11-29] MEDS ORDERED: Lactated Ringers 1,000 ML IV ONE (14:56)
--- NOTE | 2021-11-29 14:58 | XRAY ---
Indication: Right L4-S1 S1 transforaminal KHALIF. Intraoperative fluoroscopy provided for 31 seconds. 2 digital spot image submitted for interpretation demonstrates posterior needle tips projecting over the expected right L4 and L5 nerve roots. Small amount of contrast injected for needle tip placement. Correlate with intraoperative findings/report.
--- NOTE | 2021-11-29 17:05 | XRAY ---
31 seconds fluoroscopy time in surgery for right L4-S1 transforaminal KHALIF.
== END 2021-11-29 14:30 | disposition home or self-care (01) ==
LOC: SDC-PAIN 11:58
PROVIDERS: ATTEND Psychiatry & Neurology Pain Medicine
DX: M54.16 Radiculopathy, lumbar region (principal); I10 Essential (primary) hypertension; E78.5 Hyperlipidemia, unspecified; Z79.899 Other long term (current) drug therapy
CPT/HCPCS: 64493; 64494; 72100; 77003; 93005; J1030; J2704; Q9966

== ENCOUNTER 2021-12-19 14:24 | Emergency (ER) | payer MEDICARE ==
--- NOTE | 2021-12-19 14:53 | ERPHSYRPT ---
- History of Present Illness Historian: patient Exam Limitations: no limitations Patient Subjective Stated Complaint: two episodes of left sided chest pain today, both resolved with 1-2 minutes Triage Nursing Assessment: Patient presents to ED via wheelchair. A& OX3. Shahzad es any pain or symptoms at this time. Pt reports 2 episodes today of left sided, non radiating chest pain lasting 1-2 minutes. Describes pain as achy, has never had this type of pain before. Only cardiac hx per pt is HTN. Denies having any nausea, lightheadedness, abdominal pain or SOB with the episodes of chest pain. Pt denies any pain at this time. Skin PWD. Affect appropriate, answers questions appropriately. VSS. Physician History: 86 yo wf w L lateral, sharp chest pain at 8:00AM and 1:30PM today which each lasted 1-2 minutes.She is pain free at present. Pain did not radiate and was 7/10 on scale. She denies N/V/diaphoresis/dyspnea. Pt has a h/o HTN/Hyperlipide cole. She denies h/o CAD/WA/Tobacco use/DM. Cough/Fever are also denied. Timing/Duration: today (8:00/13:30) Activities at Onset: rest Quality: sharpness Location: other (L lateral) Chest Pain Radiation: no radiation Severity of Pain-Max: moderate Severity of Pain-Current: none Modifying Factors: Improves With: nothing Associated Symptoms: No nausea, No vomiting, No palpitations, No heartburn, No abdominal pain, No shortness of breath, No cough, No hurts to breathe, No di aphoresis, No chills, No fever, No fatigue, No weakness, No swelling/lump in chest, No syncope, No rash, No headache, No dizziness, No edema, No back pain Nitro Today/Relief: no nitro taken today Aspirin Treatment Today: 81 mg x 1 Allergies/Adverse Reactions: No Known Drug Allergies Allergy (Verified 12/19/21 14:36) Home Medications: Aspirin 81 gm Chew [Baby Aspirin 81 mg Chew] 81 mg PO DAILY 05/07/13 [History] Clopidogrel Bisulfate 75 mg [PLAVIX 75 MG Tablet] 75 mg PO DAILY 05/07/13 [History] Cholecalciferol (Vitamin D3) [Vitamin D3] 1 cap PO DAILY 11/03/19 [History] Furosemide 20 mg [Lasix 20 mg] 20 mg PO DAILY 11/03/19 [History] Levothyroxine Sodium 25 mcg PO DAILY 11/03/19 [History] Magnesium Oxide [Magnesium] 1 tab PO HS 11/03/19 [History] Omeprazole 20 mg PO DAILY 11/03/19 [History] Potassium Chloride 10 Meq Tab* [Klor Con 10 MEQ] 10 meq PO BID 11/03/19 [History] Simvastatin 5 mg PO DAILY 11/03/19 [History] cycloSPORINE [Restasis] 1 drop BID 11/03/19 [History] Amlodipine Besylate 5 mg [Norvasc 5 mg] 5 mg PO DAILY 11/04/19 [History] Hx Tetanus, Diphtheria Vaccination/Date Given: No Hx Influenza Vaccination/Date Given: Yes Hx Pneumococcal Vaccination/Date Given: No Travel Risk - International Travel Have you traveled outside of the country in past 3 weeks: No - Coronavirus Screening Are you exhibiting any of the following symptoms?: No Close contact with a COVID-19 positive Pt in past 14-21 Days: No - Vaccine Status Have you recieved a Covid-19 vaccination: Yes Social Work Specialist: Moderna - Vaccination Dates Date of 2cond Vaccination (if applicable): March 2021 Comment: states booster a few months ago - Review of Systems Constitutional: No Symptoms Eyes: No Symptoms Ears, Nose, & Throat: No Symptoms Respiratory: No Symptoms Cardiac: No Symptoms, Chest Pain Abdominal/Gastrointestinal: No Symptoms Genitourinary Symptoms: No Symptoms Musculoskeletal: No Symptoms Skin: No Symptoms Neurological: No Symptoms Psychological: No Symptoms Endocrine: No Symptoms Hematologic/Lymphatic: No Symptoms Immunological/Allergic: No Symptoms - Past Medical History Pertinent Past Medical History: Yes Neurological History: No Pertinent History, TIA ENT History: Cataracts Cardiac History: Hypertension Respiratory History: No Pertinent History Endocrine Medical History: No Pertinent History Musculoskeletal History: Arthritis GI Medical History: Ulcer History: Renal Disease Psycho-Social History: No Pertinent History Female Reproductive Disorders: No Pertinent History Other Medical History: SKIN CANCER; 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; shunt placed 2020 - Past Surgical History Past Surgical History: Yes Neuro Surgical History: No Pertinent History Cardiac: No Pertinent History Respiratory: No Pertinent History Gastrointestinal: Other Genitourinary: No Pertinent History Musculoskeletal: Orthopedic Surgery Female Surgical History: No Pertinent History Other Surgical History: PERFORATED ULCER SHOULDER SURGERY - Social History Smoking Status: Never smoker Exposure to second hand smoke: No Drug Use: none 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) Significant Family History: no pertinent family hx - Female History Hx Now: No - Nursing Vital Signs Nursing Vital Signs: Initial Vital Signs Temperature 97.7 F 12/19/21 14:26 Pulse Rate 77 12/19/21 14:26 Respiratory Rate 16 12/19/21 14:26 Blood Pressure 177/80 12/19/21 14:26 O2 Sat by Pulse Oximetry 97 12/19/21 14:26 Pain Scale Pain Intensity 0 Hypertensive - Physical Exam General Appearance: no apparent distress Eye Exam: PERRL/EOMI, eyes nml inspection Ears, Nose, Throat Exam: normal ENT inspection, TMs normal, pharynx normal, moist mucous membranes Neck Exam: normal inspection, non-tender, supple, full range of motion, No meningismus, No mass, No Brudzinski, No Kernig's, No carotid bruit Respiratory Exam: normal breath sounds, lungs clear, airway intact, No respiratory distress Cardiovascular Exam: regular rate/rhythm, normal heart sounds, normal peripheral pulses, capillary refill <2 sec, No murmur Gastrointestinal/Abdomen Exam: soft, normal bowel sounds, No tenderness Back Exam: normal inspection, normal range of motion, No CVA tenderness Extremity Exam: normal inspection, normal range of motion Neurologic Exam: alert, oriented x 3, cooperative, deputy 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 bailiff II-XII nml as tested, normal mood/affect, nml cerebellar function, nml station & gait, sensation nml, No motor deficits, No sensory deficit Skin Exam: normal color Lymphatic Exam: No adenopathy SpO2 Interpretation: normal SpO2: 97 O2 Delivery: Room Air - Course Nursing assessment & vital signs reviewed: Yes EKG Interpreted by Me: RATE (NSR/R76/Occ PVC's/PAC's/Possible old inferior WA/Low voltage/Flat Twaves/No acute ST segment changes) - Radiology Exams Chest X-ray Interpretation: Discussed w/ radiologist (NAD) Ordered Tests: Active Orders 24 hr Category Date Time Status EKG-ER Only STAT Care 12/19/21 14:46 Completed IV Insertion STAT Care 12/19/21 14:46 Completed CHEST 1 VIEW (PORTABLE) Stat Exams 12/19/21 14:47 Completed CBC W DIFF Stat Lab 12/19/21 14:56 Completed CMP Stat Lab 12/19/21 14:56 Completed NT PRO BNP Stat Lab 12/19/21 14:56 Completed PROTIME WITH INR Stat Lab 12/19/21 14:56 Completed PTT Stat Lab 12/19/21 14:56 Completed TROPONIN Q3H Lab 12/19/21 14:56 Completed TROPONIN Q3H Lab 12/19/21 18:20 Completed Medication Summary Discontinued Medications Generic Name Dose Route Start Last Admin Trade Name Freq PRN Reason Stop Dose Admin Aspirin 324 mg 12/19/21 14:54 12/19/21 15:01 Aspirin 81 Mg Tab.Chew PO 12/19/21 14:55 324 mg STAT ONE Administration Lab/Rad Data: Laboratory Result Diagrams 12/19/21 14:56 12/19/21 14:56 Laboratory Results 12/19/21 12/19/21 12/19/21 Range/Units 18:20 14:56 14:56 WBC (4.0-10.5) K/mm3 RBC (4.1-5.4) M/mm3 Hgb (12.0-16.0) gm/dl Hct (35-47) % MCV (78-100) fl MCH (26-32) pg MCHC (32-36) g/dl RDW (11.5-14.0) % Plt Count (150-450) K/mm3 MPV (7.5-11.0) fl Gran % (36.0-66.0) % Eos # (Auto) (0-0.5) Absolute Lymphs (auto) (1.0-4.6) Absolute Monos (auto) (0.0-1.3) Lymphocytes % (24.0-44.0) % Monocytes % (0.0-12.0) % Eosinophils % (0.00-5.0) % Basophils % (0.0-0.4) % Absolute Granulocytes (1.4-6.9) Basophils # (0-0.4) PT 10.8 (9.4-12.5) SECONDS INR 0.92 (0.8-3.0) APTT 29.5 (25.1-36.5) SECONDS Sodium (137-145) mmol/L Potassium (3.5-5.1) mmol/L Chloride (98-107) mmol/L Carbon Dioxide (22-30) mmol/L Anion Gap (5-15) MEQ/L BUN (7-17) mg/dL Creatinine (0.52-1.04) mg/dL Estimated GFR ML/MIN Glucose (74-106) mg/dL Calcium (8.4-10.2) mg/dL Total Bilirubin (0.2-1.3) mg/dL AST (14-36) U/L ALT (0-35) U/L Alkaline Phosphatase (38-126) U/L Troponin I < 0.012 < 0.012 (0.000-0.034) ng/mL NT-Pro-B Natriuret Pep (0-1800) pg/mL Serum Total Protein (6.3-8.2) g/dL Albumin (3.5-5.0) g/dL 12/19/21 12/19/21 Range/Units 14:56 14:56 WBC 6.4 (4.0-10.5) K/mm3 RBC 4.62 (4.1-5.4) M/mm3 Hgb 14.5 (12.0-16.0) gm/dl Hct 44.2 (35-47) % MCV 95.7 (78-100) fl MCH 31.4 (26-32) pg MCHC 32.8 (32-36) g/dl RDW 15.2 H (11.5-14.0) % Plt Count 173 (150-450) K/mm3 MPV 9.6 (7.5-11.0) fl Gran % 46.4 (36.0-66.0) % Eos # (Auto) 0.16 (0-0.5) Absolute Lymphs (auto) 2.60 (1.0-4.6) Absolute Monos (auto) 0.66 (0.0-1.3) Lymphocytes % 40.5 (24.0-44.0) % Monocytes % 10.3 (0.0-12.0) % Eosinophils % 2.5 (0.00-5.0) % Basophils % 0.3 (0.0-0.4) % Absolute Granulocytes 2.98 (1.4-6.9) Basophils # 0.02 (0-0.4) PT (9.4-12.5) SECONDS INR (0.8-3.0) APTT (25.1-36.5) SECONDS Sodium 143 (137-145) mmol/L Potassium 3.9 (3.5-5.1) mmol/L Chloride 105 (98-107) mmol/L Carbon Dioxide 28 (22-30) mmol/L Anion Gap 13.8 (5-15) MEQ/L BUN 22 H (7-17) mg/dL Creatinine 1.08 H (0.52-1.04) mg/dL Estimated GFR 51.0 ML/MIN Glucose 86 (74-106) mg/dL Calcium 9.8 (8.4-10.2) mg/dL Total Bilirubin 0.70 (0.2-1.3) mg/dL AST 19 (14-36) U/L ALT 13 (0-35) U/L Alkaline Phosphatase 75 (38-126) U/L Troponin I (0.000-0.034) ng/mL NT-Pro-B Natriuret Pep 378 (0-1800) pg/mL Serum Total Protein 7.3 (6.3-8.2) g/dL Albumin 4.5 (3.5-5.0) g/dL - Progress Progress: improved Progress Note: 12/19/21 19:19 Pt wo chest pain/dyspnea during entire stay. Vital signs stable Counseled pt/family regarding: lab results, diagnosis, need for follow-up, rad results - Departure Departure Disposition: Home Clinical Impression: Chest pain Condition: Stable Critical Care Time: No Referrals: CONSTANTINE HENRY DO [Primary Care Provider] - Follow up/PCP as directed Instructions: Chest Pain (DC) Additional Instructions: Follow up with Dr. Michel in AM Return to ER for sustained chest pain or shortness of breath
[2021-12-19] MEDS ORDERED: BABY ASPIRIN 81 MG CHEW PO ONE (14:54)
[2021-12-19 15:07] LABS: Absolute Neutrophil Ct (ANC) 2.98 (1.4-6.9); Basophil (Absolute #) 0.02 (0-0.4); Eosinophil % 2.5 % (0.00-5.0); Eosinophil (Absolute #) 0.16 (0-0.5); Hematocrit 44.2 % (35-47); Hemoglobin 14.5 gm/dl (12.0-16.0); Lymphocytes % 40.5 % (24.0-44.0); Mean Cell Volume 95.7 fl (78-100); Mean Corpuscular Hemoglobin 31.4 pg (26-32); Mean Corpuscular Hgb Concent. 32.8 g/dl (32-36); Mean Platelet Volume 9.6 fl (7.5-11.0); Monocyte (Absolute #) 0.66 (0.0-1.3); Monocytes % 10.3 % (0.0-12.0); Neutrophil % 46.4 % (36.0-66.0); Platelet Count 173 K/mm3 (150-450); Red Blood Count 4.62 M/mm3 (4.1-5.4); Red Cell Distribution Width 15.2 % (11.5-14.0); White Blood Count 6.4 K/mm3 (4.0-10.5)
--- NOTE | 2021-12-19 15:11 | XRAY ---
Indication: Chest pain. Comparison: September 14, 2019. Portable chest remains clear. Heart not enlarged again with arteriosclerotic and tortuous descending aorta. Bony thorax intact again with osteopenia, degenerative changes, and levoscoliosis. Impression: Continued nonacute chest with chronic features.
[2021-12-19 15:13] LABS: INR 0.92 (0.8-3.0); PROTIME 10.8 SECONDS (9.4-12.5)
[2021-12-19 15:16] LABS: PTT 29.5 SECONDS (25.1-36.5)
[2021-12-19 15:25] LABS: ALBUMIN 4.5 g/dL (3.5-5.0); ANION GAP 13.8 MEQ/L (5-15); BILIRUBIN,TOTAL 0.7 mg/dL (0.2-1.3); Calcium 9.8 mg/dL (8.4-10.2); Creatinine 1 1.08 mg/dL (0.52-1.04); Potassium 3.9 mmol/L (3.5-5.1); Total Protein 7.3 g/dL (6.3-8.2)
[2021-12-19 19:05] VITALS: BP 155/66
[2021-12-19 19:53] VITALS: PULSE 80
[2021-12-19 20:43] VITALS: O2SAT 97
== END 2021-12-19 19:48 | disposition home or self-care (01) ==
LOC: ED 14:24
DX: R07.9 Chest pain, unspecified (principal); I10 Essential (primary) hypertension; E78.5 Hyperlipidemia, unspecified; Z79.01 Long term (current) use of anticoagulants; Z79.899 Other long term (current) drug therapy
CPT/HCPCS: 36000; 36415; 71045; 80053; 83880; 84484; 85025; 85610; 85730; 93005; 99284; A9270-GY